=== PATIENT | female | born 1985 | race Caucasian/White ===

== ENCOUNTER 2016-10-29 18:22 | Emergency (ER) | payer MEDICAID ==
[~2016-10-29] VITALS: Ht 170.2 cm; Wt 52.3 kg
[~2016-10-29 18:22] MED LIST: BIRTH CONTROL
[2016-10-29 18:27] VITALS: TEMP 100.3
[2016-10-29 19:03] LABS: ALBUMIN 4.5 gm/dL (3.5-5.0); BILIRUBIN,TOTAL 0.8 mg/dL (0.0-1.0); CALCIUM 9.4 mg/dL (8.4-10.2); CREATININE, serum 0.66 mg/dL (0.52-1.25); HEMOGLOBIN 15.2 g/dl (12.5-16.0); MEAN CELL VOLUME 91 fl (80.0-100.0); MEAN CORPUSCULAR HEMOGLOBIN 31 pg (27.0-31.0); MEAN CORPUSCULAR HGB CONC 35 g/dl (33.0-37.0); MEAN PLATELET VOLUME 9.8 fl (7.4-10.4); PLATELET COUNT 265 K/mm3 (130-400); POTASSIUM 3.8 mmol/L (3.4-5.0); RED BLOOD COUNT 4.84 M/mm3 (4.10-5.30); TOTAL PROTEIN 7.6 gm/dL (6.4-8.2); WHITE BLOOD COUNT 13.7 K/mm3 (4.8-10.8)
[2016-10-29 19:05] LABS: ADD PATHOLOGY DIFF REVIEW NO
[2016-10-29 19:29] LABS: BAND 10 % (0-10); NEUTROPHILS 86 % (42.0-75.2); PLATELET ESTIMATE NORMAL (NORMAL); TOTAL CELLS COUNTED 100
[2016-10-29 20:27] LABS: PH 5 (5-8); SQUAMOUS EPITHELIAL None Seen /hpf; URINE APPEARANCE Clear; URINE BACTERIA None Seen /hpf; URINE BILIRUBIN Negative (NEGATIVE); URINE BLOOD 1+ (NEGATIVE); URINE COLOR Yellow; URINE GLUCOSE Negative (NEGATIVE); URINE KETONE 2+ (NEGATIVE); URINE UROBILINOGEN Negative (NEGATIVE); URINE WBC 0-2 /hpf
[2016-10-29] MEDS ORDERED: ZOFRAN ODT4 MG PO (21:07)
[2016-10-29 22:07] VITALS: BP 103/60; PULSE 116
== END 2016-10-29 22:35 | disposition home or self-care (01) ==
LOC: COL.ER 18:22
PROVIDERS: Emergency Medicine
DX: A08.4 Viral intestinal infection, unspecified (principal)
CPT/HCPCS: J2765; J3010; J7030

== ENCOUNTER 2017-02-18 00:45 | Emergency (ER) | payer MEDICAID ==
[~2017-02-18] VITALS: Ht 170.2 cm; Wt 54.5 kg
[~2017-02-18 00:45] MED LIST changes: +ZOFRAN ODT4 MG PO
[2017-02-18 00:48] VITALS: TEMP 98.7
[2017-02-18 01:39] VITALS: BP 126/70; PULSE 82
== END 2017-02-18 01:43 | disposition home or self-care (01) ==
LOC: COL.ER 00:45
DX: F10.120 Alcohol abuse with intoxication, uncomplicated (principal); Y90.8 Blood alcohol level of 240 mg/100 ml or more
CPT/HCPCS: J2405; J7030